=== PATIENT | female | born 1980 | race Hispanic/Latino ===

== ENCOUNTER 2022-01-19 08:09 | Observation (INO) | payer MEDICARE ==
[2022-01-14 12:09] LABS: BASOPHILS % (AUTO) 0.3 % (0.0-5.0); EOSINOPHILS % (AUTO) 2.5 % (0.0-8.0); HEMATOCRIT 39.8 % (36-48); LYMPHOCYTES % (AUTO) 31.2 % (21.0-51.0); MEAN CORPUSCULAR HEMOGLOBIN 31.1 pg (27.0-33.0); MEAN CORPUSCULAR HGB CONC 32.9 g/dL (32.0-36.0); MEAN CORPUSCULAR VOLUME 94.5 fL (79-99); MONOCYTES % (AUTO) 7.7 % (3.0-13.0); NEUTROPHILS % (AUTO) 58.1 % (40.0-77.0); PLATELET COUNT (AUTO) 223 K/uL (130-400); RED BLOOD CELL COUNT(AUTO) 4.21 MIL/uL (4.00-5.50); RED CELL DISTRIBUTION WIDTH 12.3 % (11.0-15.5)
[2022-01-14 12:16] LABS: CREATININE 0.6 mg/dL (0.5-1.5); POTASSIUM 3.6 mmol/L (3.5-5.1)
[2022-01-14 12:19] LABS: INR 0.93 (0.85-1.15)
[2022-01-14 12:20] LABS: PARTIAL THROMBOPLASTIN TIME 27.6 SEC (26.3-35.5)
[2022-01-16 09:55] VITALS: BP 150/87
[2022-01-19] VITALS (22 sets, daily range): BP systolic 92–139; BP diastolic 45–82
[~2022-01-19] VITALS: Ht 157.5 cm; Wt 87.4 kg
[~2022-01-19 08:09] MED LIST: CEFAZOLIN SODIUM 1 GM VIAL IVPB SCH
[2022-01-19] MEDS ORDERED: LACTATED RINGERS 1000ML 1,000 ML IV ONE (10:38)
[2022-01-19] MEDS ORDERED: ZOLP10TA2 PO (10:57)
[2022-01-19] MEDS ORDERED: ESTR1PAT84 TD (10:57)
[2022-01-19] MEDS ORDERED: [UNRECOGNIZED DRUG - OTHER] TD (10:57)
[2022-01-19] MEDS ORDERED: ROCURONIUM 10MG/1ML SYR 10 MG/ML ML ONE (14:17)
[2022-01-19] MEDS ORDERED: MIDAZOLAM HCL 1 MG/ML 2ML VIAL ONE (14:17)
[2022-01-19] MEDS ORDERED: PROPOFOL 10 MG/ML 20ML VIAL IV ONE (14:17)
[2022-01-19] MEDS ORDERED: SUCCINYLCHOLINE 200MG/10ML SYR ONE (14:17)
[2022-01-19] MEDS ORDERED: LIDOCAINE PF 100MG/5ML (2%) SYRINGE 5ML ONE (14:17)
[2022-01-19] MEDS ORDERED: FENTANYL CITRATE PF 50 MCG/1 ML 2ML VIAL ONE (14:20)
[2022-01-19] MEDS ORDERED: CEFAZOLIN SODIUM 2 GM VIAL IVPB ONE (14:30)
[2022-01-19] MEDS ORDERED: FENTANYL CITRATE PF 50 MCG/1 ML 5ML AMP IV ONE (14:59)
[2022-01-19] MEDS ORDERED: ONDANSETRON 4MG INJ ONE (17:11)
[2022-01-19] MEDS ORDERED: KETOROLAC 30MG VIAL (30MG/ML) ONE (17:11)
[2022-01-19] MEDS ORDERED: MEPERIDINE-PF 25 MG/ML SYG ONE ×2 (17:11→17:36)
[2022-01-19] MEDS ORDERED: ONDANSETRON 4MG INJ IVP PRN (19:30)
[2022-01-19] MEDS: LACTATED RINGERS 1000ML 1,000 ML IV SCH (21:18)
[2022-01-19] MEDS: KETOROLAC 30MG VIAL (30MG/ML) IVP PRN (21:19)
[2022-01-19] MEDS: CEFAZOLIN SODIUM 2 GM VIAL IVP SCH (23:46)
[2022-01-19] MEDS: MORPHINE 4 MG SYG IVP PRN (23:46)
[2022-01-20 00:05] VITALS: BP 101/71
[2022-01-20 04:06] LABS: BASOPHILS % (AUTO) 0.1 % (0.0-5.0); EOSINOPHILS % (AUTO) 1.3 % (0.0-8.0); HEMATOCRIT 28.9 % (36-48); LYMPHOCYTES % (AUTO) 15.6 % (21.0-51.0); MEAN CORPUSCULAR HEMOGLOBIN 31.2 pg (27.0-33.0); MEAN CORPUSCULAR HGB CONC 34.3 g/dL (32.0-36.0); MEAN CORPUSCULAR VOLUME 91.2 fL (79-99); MONOCYTES % (AUTO) 7.2 % (3.0-13.0); NEUTROPHILS % (AUTO) 75.4 % (40.0-77.0); PLATELET COUNT (AUTO) 203 K/uL (130-400); RED BLOOD CELL COUNT(AUTO) 3.17 MIL/uL (4.00-5.50); RED CELL DISTRIBUTION WIDTH 11.9 % (11.0-15.5); WHITE BLOOD COUNT (AUTO) 7.9 K/uL (4.8-10.8)
[2022-01-20 04:18] VITALS: BP 125/66
[2022-01-20 04:22] LABS: CREATININE 0.6 mg/dL (0.5-1.5); POTASSIUM 3.9 mmol/L (3.5-5.1)
[2022-01-20] MEDS: KETOROLAC 30MG VIAL (30MG/ML) IVP PRN (05:11)
[2022-01-20] MEDS: LACTATED RINGERS 1000ML 1,000 ML IV SCH (05:49)
[2022-01-20 07:40] VITALS: BP 118/73
[2022-01-20] MEDS: CEFAZOLIN SODIUM 2 GM VIAL IVP SCH ×2 (09:03→16:17)
[2022-01-20 11:17] VITALS: BP 118/68
[2022-01-20] MEDS: MORPHINE 4 MG SYG IVP PRN ×2 (11:50→20:17)
[2022-01-20 15:40] VITALS: BP 119/58
[2022-01-20 20:48] VITALS: BP 118/51
[2022-01-21] MEDS: CEFAZOLIN SODIUM 2 GM VIAL IVP SCH ×2 (00:19→08:17)
[2022-01-21] MEDS: LACTATED RINGERS 1000ML 1,000 ML IV SCH ×2 (00:35→12:42)
[2022-01-21 00:46] VITALS: BP 114/62
[2022-01-21] MEDS: MORPHINE 4 MG SYG IVP PRN (02:12)
[2022-01-21 05:03] VITALS: BP 121/75
[2022-01-21 08:12] VITALS: BP 114/74
[2022-01-21] MEDS: KETOROLAC 30MG VIAL (30MG/ML) IVP PRN (10:59)
[2022-01-21 11:30] VITALS: BP 117/77
== END 2022-01-21 17:43 | disposition home or self-care (01) ==
LOC: DAH 08:09 → 4AH 08:10
PROVIDERS: ADMIT Surgery; ATTEND Surgery
DX: M79.3 Panniculitis, unspecified (principal); R26.2 Difficulty in walking, not elsewhere classified; Z20.822 Contact with and (suspected) exposure to COVID-19; E66.9 Obesity, unspecified; Z85.05 Personal history of malignant neoplasm of liver
CPT/HCPCS: 80048 ×2; 85025 ×2; 85610; 85730; 87426; 36415 ×3; 71045; 93005; 15830; 96374; 96375; 82948; 96376 ×2; 85018; A6260; G0378 ×47; A4663; J7030; J7120 ×3; A4452; J3010 ×2; J0690 ×7; J0330; J2001; J2250; J2704; J2405; J2270 ×4; J1885 ×4; J2175 ×2; A4649; A4930; A4215; A4223; A4222; A4221; A4600